=== PATIENT | female | born 1945 | race Caucasian/White ===

== ENCOUNTER → 2018-06-10 07:08 | Outpatient (CLI) | payer MEDICARE, OTHER, MEDICAID, SELFPAY ==
[2018-06-10 07:31] LABS: Blood Urea Nitrogen 24 mg/dL (7-18); Creatinine,Serum 1.07 mg/dL (0.55-1.02); Estimated Glomerular Filt Rate 50 ml/min (>60); GFR (African American) 60 ML/MIN (>60)
--- NOTE | 2018-06-10 09:31 | CT_ITS ---
CT chest w con HISTORY: Abnormal chest x-ray, weight loss ITS.REASON: WEIGHT LOSS ABNORMAL CXR ORDERING PHYSICIAN: Tanner Diallo MD PATIENT AGE: 73 years COMPARISON: None TECHNIQUE: Axial images obtained following the administration of 75 mL of Isovue 370 . Sagittal, and coronal reformatted images are also generated and reviewed. All CT scans at the facility use one or more dose reduction, viz: automated exposure control, ma/kV adjustment per patient size (including targeted exams where dose is matched to indication, i.e. head), or iterative reconstruction technique. FINDINGS: There are a few small lymph nodes in the mediastinum and christa but no adenopathy. Coronary artery calcifications are present. The heart size is normal without evidence of pericardial effusion. There is a moderate sized hiatal hernia with most of the stomach within the chest cavity within the hernia. The hernia is situated to the right of midline. There is patchy groundglass density in the superior segment of the right lower lobe nonspecific. Atelectatic changes are present in the right lower lobe posteriorly and inferiorly. Atelectatic or fibrotic changes are present in the left lung base in the posterior aspect of the left upper lobe. No suspicious pulmonary nodules are evident. There is minimal atelectatic or fibrotic change in the right upper lobe. Upper abdominal images show a moderate size hiatal hernia. There is mild wedging of T7 and T8 and minimal wedging of T9. The wedging is greatest at T7 and may be old. No previous exams available for comparison IMPRESSION: 1. Moderate-sized hiatal hernia 2. Scattered areas of atelectasis or fibrosis as described above with patchy infiltrate in the superior segment of the right lower lobe.
--- NOTE | 2018-06-10 09:31 | CT_ITS ---
CT abdomen pelvis w con CLINICAL INDICATION: ITS.REASON: WEIGHT LOSS ABNORMAL CXR ORDERING PHYSICIAN: Tanner Diallo MD PATIENT AGE: 73 years COMPARISON: None TECHNIQUE: Axial images obtained with sagittal and coronal reformats. All CT scans at the facility use one or more dose reduction, viz: automated exposure control, ma/kV adjustment per patient size (including targeted exams where dose is matched to indication, i.e. head), or iterative reconstruction technique. PROCEDURE: Oral Contrast: None IV Contrast: 75 mL of Isovue-370 performed in conjunction with the chest CT. FINDINGS: Coronary artery calcifications are present. There is a moderate-sized hiatal hernia containing two thirds of the stomach. The liver, spleen, right adrenal gland and pancreas have an unremarkable appearance. Nodular density is present in the mid aspect of the left adrenal gland measuring 16 mm and is indeterminate. There are a few small portal lymph nodes present. Prior cholecystectomy without ductal dilatation. No renal or ureteral calculi. No hydronephrosis. There is mild amount of retained colonic feces. There is no evidence of appendicitis. There is mild long segment thickening of the proximal aspect of the ascending colon which could be due to colitis. This begins at the region of the ileocecal valve. No evidence of diverticulitis. There are diverticula within the sigmoid colon. There has been a prior hysterectomy. There is a small umbilical hernia containing fat. There is mild wedging of L1 age indeterminate. A cystic lesion involves the femoral head on the right measuring 14 mm and may be due to a subarticular cyst/geode. IMPRESSION: 1. Moderate-sized hiatal hernia. 2. 16 mm left adrenal nodule indeterminate. Consider 6 month follow-up without and with contrast with delayed images 3. Thickening of the proximal aspect of the ascending colon which could be due to colitis 4. Possible subarticular cyst/medial to the right femur head. 5. Small umbilical hernia containing fat
== END ==
PROVIDERS: Visit Provider Internal Medicine Adolescent Medicine
DX: R93.89 Abnormal findings on diagnostic imaging of other specified body structures (principal); R63.4 Abnormal weight loss
CPT/HCPCS: 36415; 71260; 74177; 82565; 84520; Q9967

== ENCOUNTER 2018-12-26 07:28 | Emergency (ER) | payer MEDICARE, OTHER, MEDICAID, SELFPAY ==
[2018-12-26 07:28] VITALS: BP 135/66; PULSE 70; RESP 18; TEMP 36.8; O2SAT 93; BMI 33.5
--- NOTE | 2018-12-26 07:41 | CT_ITS ---
CT cervical spine wo con Ordering Physician: Quinton Joe MD Patient Age: 73 years: Female HISTORY: ITS.REASON: Fallthis morning hit head laceration frontal skull. Neck pain. TECHNIQUE: Helical CT scanning cervical spine. Axial sagittal and coronal reconstructions performed on CT workstation. All CT scans at this facility used one or more dose reduction techniques , viz: automatic exposure control, ma/Kv adjustment per patient's size, (including targeted exam where dose matched to the indication; i.e. head); or iterative reconstruction technique COMPARISON :Previous CT C-spine August 2018 Nonspecific straightening the cervical spine is similar to the previous study from August. Most likely positional but can reflect muscle spasm related to recent injury or pain. No acute fracture or subluxation is evident. C1-C2 relationships appear normal... Intact C2-C3: Disc intact.. C3-C4: Degenerative disc space narrowing with endplate hypertrophic change and bilateral foraminal narrowing.Osteophytic spurring with disc prominence most notable central into the right C4-C5: Degenerative Disc space narrowing. Uncovertebral joint hypertrophy most evident at left. Moderate left-sided foraminal narrowing. C5-6: Degenerative disc narrowing with uncovertebral hypertrophy. Most prominent spur/disc feature is seen right paracentral indenting anterior right aspect of thecal sac immediately right foraminal encroachment . C6-C7: Mild Degenerative disc space narrowing. Posterior spurring yields Mild bilateral foraminal encroachment.. C7-T1: Mild degenerative disc disease. . mild degenerative facet changes bilaterally most notable at the upper left C-spine as well as lower C-spine bilateral.. However normal facet relationships. Spinous processes appear satisfactory. Prevertebral soft tissues appear stable & WNL . IMPRESSION:...... 1. No acute fracture nor subluxation cervical spine. No significant change since 2018 prior-CT C-spine Again Multiple level cervical spondylosis and degenerative changes C-spine as described above...
--- NOTE | 2018-12-26 07:41 | CT_ITS ---
CT head/brain wo con HISTORY: Fall this morning hitting head frontal region. 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 Brain and bone windows reviewed. All CT scans at the facility use one or more dose reduction, viz: automated exposure control, ma/kV adjustment per patient size (including targeted exams where dose is matched to indication, i.e. head), or iterative reconstruction technique. FINDINGS: No new acute intracranial findings. Again see the postsurgical changes frontal lobe most evident to the right extensive atrophy, encephalomalacia of the frontal lobe anterior to the frontal horns again seen, unchanged since August exam. The previous extensive craniotomy anteriorly frontal bone again noted. No acute hemorrhage.. No mass effect no midline shift. No new extra-axial collection Mild Diffuse cerebral atrophy seen elsewhere. There is also mild diffuse atrophy at cerebellum and posterior fossa region is stable. The bone windows again nicely demonstrate the extensive frontal craniotomy which overall is unchanged. Suggestion of small hematoma at the frontal bone just above the left orbit towards midline. The skull beneath this area intact & unchanged The mastoid air cells appears stable with no mastoid effusion. Mild sclerosis at tip of left mastoid reflect old changes here.. Middle ear clear. Orbits unremarkable stable IMPRESSION... No acute intracranial findings. ... extensive postsurgical changes anteriorly with prominent atrophy, & encephalomalacia bifrontal regions again noted-unchanged since previous studies Prominent frontal craniotomy defect again noted and appears stable. Unchanged. . small scalp hematoma is seen at the left supraorbital region towards midline.-With underlying skull and bone beneath area intact
[2018-12-26 07:52] VITALS: BP 121/56; PULSE 74; O2SAT 93
--- NOTE | 2018-12-26 08:34 | PC.NURSE ---
pt return from CT
--- NOTE | 2018-12-26 08:41 | [facility].EDFALL ---
ED Disposition Clinical Impression: Fall, Facial laceration, Head contusion Disposition: Home, Self-Care Condition on Discharge: Fair Additional Instructions: 1- HOB 60 degree. 2- cold compresses 3- and fall precautions. 4- head injury instructions. 5- wound recheck in 2 days by pcp. 6- to return if needed. Referrals: Provider,Referral, [Primary Care Provider] - - Critical Care Critical Care Time: No Attestation: On 12/26/18, the high probability of a clinically significant, sudden or life threatening deterioration of the following system(s) required my full and direct attention, intervention and personal management. The time I documented below is in addition to time spent performing reported procedures but includes the following listed in this critical care notation. Medical Decision Making - Mathieu Inquiry Pt receiving controlled substance: No Mathieu was queried for this patient: No Vital Signs: 12/26/18 07:28 12/26/18 07:52 12/26/18 08:42 Temperature 98.3 F Temperature Source Oral Pulse Rate [Right Radial] 70 74 77 Respiratory Rate 18 18 Blood Pressure [Right Arm] 135/66 121/56 L 132/78 Blood Pressure Mean [Right Arm] 89 77 96 Blood Pressure Source [Right Arm] Automatic Cuff Automatic Cuff Automatic Cuff Blood Pressure Position [Right Arm] Sitting Sitting Sitting 02 Sat by Pulse Oximetry 93 L 93 L 92 L Oxygen Delivery Method Room Air Room Air Room Air 12/26/18 09:00 Temperature Temperature Source Pulse Rate [Right Radial] 70 Respiratory Rate Blood Pressure [Right Arm] 130/65 Blood Pressure Mean [Right Arm] 86 Blood Pressure Source [Right Arm] Automatic Cuff Blood Pressure Position [Right Arm] Sitting 02 Sat by Pulse Oximetry 91 L Oxygen Delivery Method Room Air - CT Data CT Scan: Head, C-Spine Time Received: 10:[address] Reviewed: Yes: I have viewed the radiologist's interpretation Preliminary Findings: Abnormal Findings Narrative: CT Head: IMPRESSION... No acute intracranial findings. ... extensive postsurgical changes anteriorly with prominent atrophy, & encephalomalacia bifrontal regions again noted-unchanged since previous studies Prominent frontal craniotomy defect again noted and appears stable. Unchanged. . small scalp hematoma is seen at the left supraorbital region towards midline.-With underlying skull and bone beneath area intact CT of the cervical spine IMPRESSION:...... 1. No acute fracture nor subluxation cervical spine. No significant change since 2018 prior-CT C-spine Again Multiple level cervical spondylosis and degenerative changes C-spine as described above... Medical Decision Narrative: I discussed with the patient's her finding informing her that using stitches and a small laceration may increase the bleeding especially while she is on aspirin. I cleaned the wound and applied Steri-Strip with Mastisol. Ordered a CT scan of the head and the cervical spine. Patient's oxygen saturation was 98 she was a percent she was alert oriented x3 in no cardiopulmonary distress distress, only new finding is neck tenderness remaining major joints where intact with normal range of motion. Fall HPI - General Chief Complaint: Fall Stated Complaint: fall from wheelchair Time Seen by Provider: 12/26/18 08:00 Mode of Arrival: EMS Limitations: No Limitations Description of Symptoms (Recalled from ER Triage Doc. by RN): retirement reports pt fell at approx 0530 this morning. Pt reports she was sitting up in her wheelchair when she fell asleep, pt report she fell out of her wheelchair after falling asleep, reports hit her head on the floor. Approx 3 cm laceration on forehead, bleeding controled upon arrival, steri strips x2 in place on laceration upon arrival-placed per [facility] staff per pt report. Pt denies pain, denies LOC - History of Present Illness HPI Narrative: 73 years old white female group home resident with c
[2018-12-26 08:42] VITALS: BP 132/78; PULSE 77; RESP 18; O2SAT 92
--- NOTE | 2018-12-26 08:45 | ED_ITS ---
ED Disposition Clinical Impression: Fall, Facial laceration, Head contusion Disposition: Home, Self-Care Condition on Discharge: Fair Additional Instructions: 1- HOB 60 degree. 2- cold compresses 3- and fall precautions. 4- head injury instructions. 5- wound recheck in 2 days by pcp. 6- to return if needed. Referrals: Provider,Referral, [Primary Care Provider] - - Critical Care Critical Care Time: No Attestation: On 12/26/18, the high probability of a clinically significant, sudden or life threatening deterioration of the following system(s) required my full and direct attention, intervention and personal management. The time I documented below is in addition to time spent performing reported procedures but includes the following listed in this critical care notation. Medical Decision Making - Mathieu Inquiry Pt receiving controlled substance: No Mathieu was queried for this patient: No Vital Signs: 12/26/18 07:28 12/26/18 07:52 12/26/18 08:42 Temperature 98.3 F Temperature Source Oral Pulse Rate [Right Radial] 70 74 77 Respiratory Rate 18 18 Blood Pressure [Right Arm] 135/66 121/56 L 132/78 Blood Pressure Mean [Right Arm] 89 77 96 Blood Pressure Source [Right Arm] Automatic Cuff Automatic Cuff Automatic Cuff Blood Pressure Position [Right Arm] Sitting Sitting Sitting 02 Sat by Pulse Oximetry 93 L 93 L 92 L Oxygen Delivery Method Room Air Room Air Room Air 12/26/18 09:00 Temperature Temperature Source Pulse Rate [Right Radial] 70 Respiratory Rate Blood Pressure [Right Arm] 130/65 Blood Pressure Mean [Right Arm] 86 Blood Pressure Source [Right Arm] Automatic Cuff Blood Pressure Position [Right Arm] Sitting 02 Sat by Pulse Oximetry 91 L Oxygen Delivery Method Room Air - CT Data CT Scan: Head, C-Spine Time Received: 10:[address] Reviewed: Yes: I have viewed the radiologist's interpretation Preliminary Findings: Abnormal Findings Narrative: CT Head: IMPRESSION... No acute intracranial findings. ... extensive postsurgical changes anteriorly with prominent atrophy, & encephalomalacia bifrontal regions again noted-unchanged since previous studies Prominent frontal craniotomy defect again noted and appears stable. Unchanged. . small scalp hematoma is seen at the left supraorbital region towards midline.-With underlying skull and bone beneath area intact CT of the cervical spine IMPRESSION:...... 1. No acute fracture nor subluxation cervical spine. No significant change since 2018 prior-CT C-spine Again Multiple level cervical spondylosis and degenerative changes C-spine as described above... Medical Decision Narrative: I discussed with the patient's her finding informing her that using stitches and a small laceration may increase the bleeding especially while she is on aspirin. I cleaned the wound and applied Steri-Strip with Mastisol. Ordered a CT scan of the head and the cervical spine. Patient's oxygen saturation was 98 she was a percent she was alert oriented x3 in no cardiopulmonary distress distress, only new finding is neck tenderness remaining major joints where intact with normal range of motion. Fall HPI - General Chief Complaint: Fall Stated Complaint: fall from
--- NOTE | 2018-12-26 08:46 | PC.NURSE ---
closed wound with steri strips and masitol
[2018-12-26 09:00] VITALS: BP 130/65; PULSE 70; O2SAT 91
--- NOTE | 2018-12-26 10:33 | PC.NURSE ---
report called to Gillian Hines LPN at [facility] at this time
--- NOTE | 2018-12-26 10:37 | PC.NURSE ---
contacted pt son Niranjan at this time, stated he will be on his way to get her
[2018-12-26 10:49] VITALS: BP 127/59; PULSE 72; O2SAT 91
--- NOTE | 2018-12-26 10:54 | PC.NURSE ---
pt c/o neuropathy pain in yessi feet, states she did not have her medication this morning, notified ER MD, gave verbal order for one time dose of Neurontin 600 mg po
[2018-12-26 12:38] VITALS: BP 132/74; PULSE 68; RESP 18; TEMP 36.6; O2SAT 98
== END 2018-12-26 12:39 | disposition home or self-care (01) ==
PROVIDERS: Emergency Provider Emergency Medicine
DX: S01.81XA Laceration without foreign body of other part of head, initial encounter (principal); W05.0XXA Fall from non-moving wheelchair, initial encounter; Y92.129 Unspecified place in nursing home as the place of occurrence of the external cause; Z79.899 Other long term (current) drug therapy; Z88.5 Allergy status to narcotic agent; E11.9 Type 2 diabetes mellitus without complications
CPT/HCPCS: 12011; 70450; 72125; 99283

== ENCOUNTER → 2019-09-15 13:06 | Outpatient (CLI) | payer MEDICARE, OTHER, MEDICAID, SELFPAY ==
--- NOTE | 2019-09-15 13:15 | MM_ITS ---
PROCEDURE: MM DIG MAMM BI DX W/CAD Digital Breast Tomosynthesis Included CLINICAL INDICATION: PALPABLE AREA Palpable abnormality of the left breast. Palpable abnormality outer aspect left breast COMPARISON: US BREAST LT COMPLETE from 09/15/2019 TECHNIQUE: Standard images performed along with 3D tomosynthesis and spot compression views as well as left breast ultrasound FINDINGS: There is average fibroglandular tissue. Study is somewhat limited secondary and difficulty with positioning the patient and patient motion artifact. There are multiple benign-appearing nodules of the right breast. No malignant appearing mass or malignant-appearing microcalcification evident of the right breast. A marker is placed along the upper-outer left breast denoting the area of palpable concern. At this region there is an ill-defined asymmetric density measuring 10 x 10 mm which persist on focal spot compression views and better demonstrated on the 3D tomography images. In addition, there is an indeterminate cluster of microcalcification in the medial aspect of the left breast Left breast ultrasound: 4 mm cyst is present 1 o'clock. At 3 o'clock corresponding to the area of palpable abnormality there is a 1 x 9 mm area of complex echogenicity with peripheral increased echogenicity and central decreased echogenicity. The central area of decreased echogenicity measures 7 x 6 mm and is polyp than wide. This may correspond to the mammographic abnormality. There are 2 small cyst at 4 o'clock at 6 and 3 mm. There is a 5 mm cyst at 10 o'clock IMPRESSION: Abnormal mammogram on the left with a focal asymmetric density at 3 o'clock at 10 x 10 mm and a hypoechoic nodule noted at this same area. This is suspicious for neoplasm and ultrasound-guided mammotome biopsy is suggested. In addition, there are suspicious calcifications in the medial aspect of the left breast for which stereotactic biopsy is recommended. BI-RAD Category: 4 Suspicious Abnormality - Biopsy Considered FOLLOW-UP: BIO Biopsy Recommended (A letter has been sent to the patient regarding results of the study.) Dictated by: Jose Maria Elizondo MD 09/21/2019 09:56 Electronically signed by Jose Maria Elizondo MD in [facility] 09/21/2019 09:56
== END ==
PROVIDERS: PCP Internal Medicine Adolescent Medicine; Visit Provider Internal Medicine Adolescent Medicine
DX: N63.23 Unspecified lump in the left breast, lower outer quadrant (principal)
CPT/HCPCS: 76641; 77062; 77066; G0279

== ENCOUNTER → 2019-10-08 19:57 | Outpatient (CLI) | payer MEDICARE, OTHER, MEDICAID, SELFPAY ==
[2019-10-08 20:01] LABS: Microscopic, Urine URINE MICROSCOPIC (MICROSCOPIC)
[2019-10-08 20:16] LABS: Appearance,Urine CLEAR (Clear); Bilirubin,Urine Negative (Negative); Blood, Urine Negative (Negative); Color,Urine YELLOW (Yellow); Glucose,Urine (UA) Negative (Negative); Ketones,Urine Negative (Negative); Leukocyte Esterase,Urine Negative (Negative); Nitrate,Urine Negative (Negative); Protein,Urine Negative (Negative); Specific Gravity, Urine 1.015 (1.005-1.030); Urobilinogen,Urine 0.2 EU/dl (0.2)
[2019-10-08 20:22] LABS: Amorphous Sediment,Urine Trace /lpf; Hyaline Casts,Urine Occasional #/lpf (0)
== END ==
PROVIDERS: Visit Provider Internal Medicine Adolescent Medicine
DX: R50.9 Fever, unspecified (principal)
CPT/HCPCS: 81001

== ENCOUNTER 2019-10-14 08:25 | Outpatient (CLI) | payer MEDICARE, OTHER, MEDICAID, SELFPAY ==
[2019-10-14] VITALS (20 sets, daily range): BP systolic 111–133; BP diastolic 48–88; PULSE 63–84; RESP 18–20; TEMP 36.1–36.9; O2SAT 92–97; BMI 34.0
[2019-10-14 09:19] LABS: Hematocrit 24.7 % (37.0-47.0)
[2019-10-14 09:25] LABS: Hemoglobin 7.7 g/dL (12.2-16.2)
--- NOTE | 2019-10-14 12:08 | PC.NURSE ---
1108 - PT SITTING UP IN CHAIR. BLOOD STARTED AT THIS TIME. BLOOD INFUSING AT 100 ML/HR. VSS. PT TOLERATING WELL. 1138 - PT SITTING UP IN CHAIR EATING LUNCH. BLOOD INFUSING AT 150 ML/HR. IV PATENT. VSS. PT TOLERATING WELL. 1153 - PT ASSISTED TO BED. VSS. IV PATENT. 1208- PT RESTING IN BED. IV PATENT. BLOOD INFUSING AT 200 ML/HR. PT TOLERATING WELL.
--- NOTE | 2019-10-14 14:12 | PC.NURSE ---
1331 - BLOOD TRANSFUSION STARTED AT THIS TIME. PT SITTING UP IN CHAIR. IV PATENT. BLOOD INFUSING AT 100 ML/HR. PT TOLERATING WELL. VSS. 1401 - PT [place] [facility] [place]. PT VOIDED WITHOUT DIFFICULTY. PT ASSISTED BACK TO CHAIR. IV PATENT. BLOOD INFUSING AT 150ML/HR. PT TOLERATING WELL. VSS.
[2019-10-14 16:40] LABS: Hematocrit 32.4 % (37.0-47.0)
[2019-10-14 16:44] LABS: Hemoglobin 10.7 g/dL (12.2-16.2)
== END 2019-10-14 17:00 | disposition home or self-care (01) ==
LOC: INF 08:32
PROVIDERS: Visit Provider Nurse Practitioner Family
DX: D64.9 Anemia, unspecified (principal)
CPT/HCPCS: 36415; 36430; 85014; 85018; 86850; 96409; P9016

== ENCOUNTER 2019-12-28 20:29 | Emergency (ER) | payer MEDICARE, OTHER, MEDICAID, SELFPAY ==
[2019-12-28 20:37] VITALS: BP 129/65; PULSE 94; RESP 22; TEMP 36.8; O2SAT 92; BMI 33.2
[2019-12-28 20:37] LABS: POC Glucose,Bedside 143 (70-110)
[2019-12-28 20:42] VITALS: BMI 33.2
--- NOTE | 2019-12-28 20:43 | XR_ITS ---
PROCEDURE: XR CHEST PORTABLE CLINICAL HISTORY: Altered mental status COMPARISON: CXR1 CHEST-PORTABLE from 04/08/[address] chest w con from 06/10/2018 CXR2 XR chest AP from 08/11/2018 FINDINGS: Cardiomegaly and large hernia is again noted. Lung cage are clear. Soft tissues and bony structures are intact IMPRESSION: Large hiatal hernia, cardiomegaly, clear lung cage Dictated by: Bruce Duncan 12/29/2019 08:21 Electronically signed by Bruce Duncan in [facility] 12/29/2019 08:21
--- NOTE | 2019-12-28 20:43 | CT_ITS ---
PROCEDURE: CT HEAD/BRAIN WO CON CLINICAL INDICATION: Altered mental status COMPARISON: HEADWO CT head/brain wo con from 12/26/2018 TECHNIQUE: Axial images obtained. All CT scans at the facility use one or more dose reduction, viz: automated exposure control, ma/kV adjustment per patient size (including targeted exams where dose is matched to indication, i.e. head), or iterative reconstruction technique. FINDINGS: There are no significant interval changes. 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 There is some streak artifact from the operative sutures. The remainder of the brain parenchyma is unremarkable. There are no definite mass lesions or hemorrhage. The sinuses are unremarkable. Bilateral mastoid effusions are noted. IMPRESSION: Stable postoperative changes of the bifrontal cortices Dictated by: Bruce Duncan 12/29/2019 08:26 Electronically signed by Bruce Duncan in [facility] 12/29/2019 08:26
--- NOTE | 2019-12-28 20:43 | ECG_ITS ---
APPROVED REPORT Exam: Resting ECG HR:92 bpm ECG Measurements Heart Rate 92 AXES IA 190 P 32 QRSd 90 QRS 95 QT 398 T 78 QTc 492 <Conclusion> Sinus rhythm with premature atrial complexes with aberrant conduction Rightward axis Nonspecific ST abnormality Prolonged QT Abnormal ECG Electronically signed by : Tanner Diallo, 01/03/2020 12:07:00
[2019-12-28 20:48] LABS: Basophils # 0.1 K/mm3 (0-0.2); Basophils % 0.6 % (0.1-2.0); Eosinophils # 0.2 K/mm3 (0.0-0.4); Eosinophils % 2.8 % (0.1-12.0); Hematocrit 27.9 % (37.0-47.0); Hemoglobin 9.4 g/dL (12.2-16.2); Lymphocytes # 1.8 K/mm3 (0.7-4.5); Lymphocytes % 22.2 % (10-50); Mean Corpuscular HGB Conc 33.7 g/dL (31.8-35.4); Mean Corpuscular Hemoglobin 37.5 pg (27.0-31.2); Mean Corpuscular Volume 111.3 fl (81-99); Monocytes # 0.6 K/mm3 (0.1-1.0); Monocytes % 6.6 % (1.7-9.3); Neutrophils # 5.6 K/mm3 (1.8-7.8); Neutrophils % 67.7 % (37.0-80.0); Platelet Count 441 K/mm3 (142-424); Red Blood Count 2.51 M/mm3 (4.20-5.40); White Blood Count 8.3 K/mm3 (4.8-10.8)
[2019-12-28 20:55] LABS: Red Cell Distribution Width 25.2 % (11.5-17.5)
[2019-12-28 20:59] LABS: Chloride 95 mmol/L (98-107); Sodium 137 mmol/L (136-145)
[2019-12-28 21:00] LABS: Potassium 3.7 mmoL/L (3.5-5.1)
[2019-12-28 21:02] LABS: Blood Urea Nitrogen 29 mg/dl (7-17); Creatinine Clearance Estimated 58 mL/min (50-200); Estimated Glomerular Filt Rate 54 ml/min (>60); GFR (African American) 65 ML/MIN (>60)
[2019-12-28 21:03] LABS: Anion Gap 12.7 mEq/L (5-15); Calcium 9.5 mg/dl (8.4-10.2); Carbon Dioxide 33 mmol/L (22.0-30.0); Glucose 140 mg/dl (74-100)
[2019-12-28 21:22] LABS: Troponin I < 0.01 ng/ml (0.00-0.034)
--- NOTE | 2019-12-28 21:22 | HMH.EDNEU ---
ED Disposition Clinical Impression: Transient cerebral ischemia Qualifiers: Transient cerebral ischemia type: unspecified Qualified Code(s): G45.9 - Transient cerebral ischemic attack, unspecified Anemia Qualifiers: Anemia type: unspecified type Qualified Code(s): D64.9 - Anemia, unspecified Disposition: Home, Self-Care Condition on Discharge: Good Instructions: DI for Altered Mental Status Additional Instructions: use o2 tonight and resume orders Referrals: Tanner Diallo MD [Primary Care Provider] - - Critical Care Critical Care Time: No Attestation: On 12/28/19, the high probability of a clinically significant, sudden or life threatening deterioration of the following system(s) required my full and direct attention, intervention and personal management. The time I documented below is in addition to time spent performing reported procedures but includes the following listed in this critical care notation. Medical Decision Making - Medical Records Medical records reviewed: Yes: I reviewed the patient's medical records. - Mathieu Inquiry Pt receiving controlled substance: No Vital Signs: 12/28/19 20:37 12/28/19 21:51 12/28/19 22:27 Temperature 98.2 F Temperature Source Rectal Pulse Rate [Right Brachial] 94 H 85 73 Respiratory Rate 22 18 18 Blood Pressure [Right Arm] 129/65 107/48 L 123/56 L Blood Pressure Mean [Right Arm] 86 67 78 Blood Pressure Source [Right Arm] Automatic Cuff Blood Pressure Position [Right Arm] Sitting 02 Sat by Pulse Oximetry 92 L 97 100 Oxygen Delivery Method Room Air Nasal Cannula Nasal Cannula Oxygen Flow Rate (LPM) 2 2 - Lab Data Lab results reviewed: Yes: I reviewed the patient's lab results. Lab Results 12/28/19 20:30: WBC 8.3, RBC 2.51 L, Hgb 9.4 L, Hct 27.9 L, MCV 111.3 H, MCH 37.5 H, MCHC 33.7, RDW 25.2 H*, Plt Count 441 H, MPV 10.0, Neut % (Auto) 67.7, Lymph % (Auto) 22.2, Bryan % (Auto) 6.6, Eos % (Auto) 2.8, Baso % (Auto) 0.6, Neut # (Auto) 5.6, Lymph # (Auto) 1.8, Bryan # (Auto) 0.6, Eos # (Auto) 0.2, Baso # (Auto) 0.1 12/28/19 20:30: Sodium 137, Potassium 3.7, Chloride 95 L, Carbon Dioxide 33 H, Anion Gap 12.7, BUN 29 H, Creatinine 1.00, Estimated Creat Clear 58, Estimated GFR 54 L, Est GFR ( Amer) 65, Glucose 140 H, Calcium 9.5, Troponin I < 0.01 12/28/19 20:34: POC Glucose 143 H 12/28/19 22:04: Urine Color Yellow, Urine Appearance Clear, Urine pH 6.0, Ur Specific [place] 1.020, Urine Protein Negative, Urine Glucose (UA) Negative, Urine Ketones Negative, Urine Blood Negative, Urine Nitrate Negative, Urine Bilirubin Negative, Urine Urobilinogen 0.2, Ur Leukocyte Esterase Negative, Urine WBC Occasional, Ur Squamous Epith Cells 3-5, Urine Bacteria Trace Result diagrams: 12/28/19 20:30 12/28/19 20:30 Orders (Tests/Meds): ORDERS Category Date Time Status CT head/brain wo con Stat Cat Scan 12/28/19 20:43 Taken XR chest portable Stat Exams 12/28/19 20:43 Taken Troponin I Q3H Lab 12/28/19 23:45 Ordered Troponin I Q3H Lab 12/29/19 02:45 Ordered - Radiology Data #1 Image(s): Chest Image Reviewed: Yes I reviewed the patient's radiology image Preliminary Findings: Normal/NAD - CT Data CT Scan: Head Time Received: 22:[address] Reviewed: Yes: I have viewed the radiologist's interpretation Preliminary Findings: Abnormal - ECG Data Tracing #1 Normal Sinus Rhythm: Yes Ischemic changes: non-specific ST-T wave changes - Reevaluation(s) Time: 22:51 Reevaluation #1: nl Neuro HPI - General Chief Complaint: Neuro Symptoms/Deficit Stated Complaint: AMS Time Seen by Provider: 12/28/19 20:45 Mode of Arrival: EMS Source of Information: Patient, EMS, Medical Record Limitations: No Limitations Description of Symptoms (Recalled from ER Triage Doc. by RN): pt presents after having a tia-like episode around 1915; nh reports a 15-20 min period of dysarthria and flaccidness to right side. presents resolved at this point. nih 0. emv
[2019-12-28 21:51] VITALS: BP 107/48; PULSE 85; RESP 18; O2SAT 97
[2019-12-28 22:06] LABS: Microscopic, Urine URINE MICROSCOPIC (MICROSCOPIC)
[2019-12-28 22:07] LABS: Appearance,Urine CLEAR (Clear); Bilirubin,Urine Negative (Negative); Blood, Urine Negative (Negative); Color,Urine YELLOW (Yellow); Glucose,Urine (UA) Negative (Negative); Ketones,Urine Negative (Negative); Leukocyte Esterase,Urine Negative (Negative); Nitrate,Urine Negative (Negative); Protein,Urine Negative (Negative); Urobilinogen,Urine 0.2 EU/dl (0.2)
[2019-12-28 22:25] LABS: Bacteria,Urine Trace /lpf; WBC,Urine Occasional #/hpf (0-3)
[2019-12-28 22:27] VITALS: BP 123/56; PULSE 73; RESP 18; O2SAT 100
[2019-12-28 23:06] VITALS: BP 111/51; PULSE 75; RESP 16; TEMP 36.7; O2SAT 93
== END 2019-12-28 23:09 | disposition home or self-care (01) ==
PROVIDERS: Emergency Provider Emergency Medicine; PCP Internal Medicine Adolescent Medicine
DX: G45.8 Other transient cerebral ischemic attacks and related syndromes (principal); G40.909 Epilepsy, unspecified, not intractable, without status epilepticus; Z88.5 Allergy status to narcotic agent; E11.9 Type 2 diabetes mellitus without complications; E78.5 Hyperlipidemia, unspecified; I10 Essential (primary) hypertension; Z79.899 Other long term (current) drug therapy
CPT/HCPCS: 70450; 71045; 80048; 81001; 82962; 84484; 85025; 93005; 99284

== ENCOUNTER → 2020-03-29 09:57 | Outpatient (CLI) | payer MEDICARE, OTHER, MEDICAID, SELFPAY ==
--- NOTE | 2020-03-29 10:02 | US_ITS ---
PROCEDURE: US MAMMOTOME BX LT Stereotactic breast biopsy. 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 There were suspicious calcifications in the mid aspect of the left breast inferiorly and a suspicious 1 cm nodule in the left breast at 3 o'clock on previous ultrasound. The ultrasound-guided biopsy was performed 1st. Following obtaining informed consent and time-out procedure using sonographic guidance under aseptic conditions and local anesthesia with 1 percent buffered lidocaine and deeper anesthesia with lidocaine mixed with epinephrine skin cindy was performed and mammotome needle inserted. Multiple mammotome biopsies were obtained. This micro nydia clip was then placed. The patient tolerated the procedure well without evidence of immediate complication Following this, patient was then aborted to the a tactic room and placed in the stereotactic unit for localization of the breast calcifications. Once calcifications were localized, under aseptic conditions and local anesthesia with 1 percent buffered lidocaine and deeper anesthesia with lidocaine mixed with epinephrine a skin cindy was performed and a mammotome needle was inserted. Multiple mammotome biopsies were obtained. Specimen radiograph did demonstrate calcifications of interest. Post biopsy mammogram showed post biopsy changes in the lower inner aspect of the left breast with removal of the calcifications of interest. There are also post biopsy changes in the the left breast at 3 o'clock from the ultrasound-guided biopsy. The patient tolerated both procedures well without evidence of immediate complication and left radiology suite in stable condition. 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 No invasive carcinoma identified. 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 Recommend surgical and oncological consult Dictated by: Jose Maria Elizondo MD 04/03/2020 10:30 Jose Maria Elizondo MD in [facility] 04/03/2020 10:30
== END ==
PROVIDERS: PCP Internal Medicine Adolescent Medicine; Visit Provider Internal Medicine Adolescent Medicine
DX: R92.8 Other abnormal and inconclusive findings on diagnostic imaging of breast (principal)
CPT/HCPCS: 19081; 76098; 76942; 77065; 88305; 88360; C2618

== ENCOUNTER → 2020-08-30 11:11 | Outpatient (CLI) | payer MEDICARE, OTHER, MEDICAID, SELFPAY ==
[2020-08-30 15:41] LABS: Basophils % 0.9 % (0.1-2.0); Eosinophils # 0.1 K/mm3 (0.0-0.4); Eosinophils % 3.1 % (0.1-12.0); Hematocrit 27.3 % (37.0-47.0); Hemoglobin 8.5 g/dL (12.2-16.2); Lymphocytes # 1.9 K/mm3 (0.7-4.5); Lymphocytes % 43.4 % (10-50); Mean Corpuscular HGB Conc 31.1 g/dL (31.8-35.4); Mean Corpuscular Hemoglobin 36.8 pg (27.0-31.2); Mean Corpuscular Volume 118.6 fl (81-99); Mean Platelet Volume 11.6 fl (7.4-10.4); Monocytes # 0.3 K/mm3 (0.1-1.0); Monocytes % 7.3 % (1.7-9.3); Neutrophils % 45.3 % (37.0-80.0); Platelet Count 361 K/mm3 (142-424); Red Cell Distribution Width 23.2 % (11.5-17.5); White Blood Count 4.3 K/mm3 (4.8-10.8)
== END ==
PROVIDERS: Visit Provider Internal Medicine Adolescent Medicine
DX: I10 Essential (primary) hypertension (principal); E11.9 Type 2 diabetes mellitus without complications; E78.5 Hyperlipidemia, unspecified
CPT/HCPCS: 36415; 85025

== ENCOUNTER → 2020-10-10 09:46 | Outpatient (CLI) | payer MEDICARE, MEDICAID, OTHER, SELFPAY ==
[2020-10-10] VITALS (20 sets, daily range): BP systolic 94–122; BP diastolic 40–58; PULSE 61–81; RESP 18; TEMP 36.1–36.6; O2SAT 97–99; BMI 30.4
[2020-10-10 11:05] LABS: Hematocrit 23.1 % (37.0-47.0); Hemoglobin 7.3 g/dL (12.2-16.2)
--- NOTE | 2020-10-10 16:52 | PC.NURSE ---
pt assisted to br, able to void without difficulty. pt then assisted to wc and transported to 2nd floor to finish the rest of her blood transfusion. report handed off to elvi desai rn.
[2020-10-10 18:33] LABS: Hematocrit 29.4 % (37.0-47.0)
[2020-10-10 18:50] LABS: Hemoglobin 9.4 g/dL (12.2-16.2)
--- NOTE | 2020-10-10 19:21 | PC.NURSE ---
PT LEFT FLOOR WITH [facility] AT [id number]
== END ==
PROVIDERS: PCP Internal Medicine Adolescent Medicine; Visit Provider Internal Medicine Adolescent Medicine
DX: D64.9 Anemia, unspecified (principal)
CPT/HCPCS: 36430; 85014; 85018; 86850; P9016

== ENCOUNTER → 2021-01-02 08:42 | Outpatient (CLI) | payer MEDICARE, MEDICAID, OTHER, SELFPAY ==
[2021-01-02 13:50] LABS: Chloride 105 mmol/L (98-107); Sodium 141 mmol/L (136-145)
[2021-01-02 13:51] LABS: Potassium 3.9 mmoL/L (3.5-5.1)
[2021-01-02 13:53] LABS: Alanine Aminotransferase 26 U/L (12-78); Albumin Level 3.5 g/dl (3.5-5.0); Alkaline Phosphatase 194 U/L (38-126); Anion Gap 14.9 mEq/L (5-15); Aspartate Amino Transferase 27 U/L (14-36); Bilirubin,Total 0.5 mg/dl (0.2-1.3); Blood Urea Nitrogen 38 mg/dl (7-17); Calcium 10.6 mg/dl (8.4-10.2); Carbon Dioxide 25 mmol/L (22.0-30.0); Estimated Glomerular Filt Rate 48 ml/min (>60); GFR (African American) 58 ML/MIN (>60); Globulin 3.4 g/dL (1.3-3.2); Glucose 88 mg/dl (74-100); Total Protein,Serum 6.9 g/dl (6.3-8.2)
[2021-01-02 13:57] LABS: Basophils % 0.5 % (0.1-2.0); Eosinophils # 0.1 K/mm3 (0.0-0.4); Hematocrit 26.8 % (37.0-47.0); Hemoglobin 8.8 g/dL (12.2-16.2); Lymphocytes # 1.6 K/mm3 (0.7-4.5); Mean Corpuscular Hemoglobin 32.5 pg (27.0-31.2); Mean Corpuscular Volume 98.7 fl (81-99); Mean Platelet Volume 11.7 fl (7.4-10.4); Monocytes # 0.3 K/mm3 (0.1-1.0); Neutrophils # 0.8 K/mm3 (1.8-7.8); Neutrophils % 29.5 % (37.0-80.0); Platelet Count 189 K/mm3 (142-424); Red Blood Count 2.72 M/mm3 (4.20-5.40); Red Cell Distribution Width 21.9 % (11.5-17.5); White Blood Count 2.8 K/mm3 (4.8-10.8)
[2021-01-02 13:59] LABS: MANUAL DIFFERENTIAL MANUAL DIFFERENTIAL (MANUAL DIFF)
[2021-01-02 15:13] LABS: Eosinophils % 1 % (0-3); Lymphocytes % 64 % (10-50); Monocytes % 12 % (2-9); Neutrophils % 13 % (42-76); Promyelocytes % 1 %; Total Cells Counted 100
[2021-01-02 15:14] LABS: Anisocytosis 1+; Platelet Estimate Normal
[2021-01-02 15:15] LABS: Burr Cells 1+; Hypochromasia 2+; Macrocytosis 1+; Tear Drop Cells 1+
[2021-01-02 15:25] LABS: Phenytoin (Dilantin) 7.1 ug/ml (10-20)
[2021-01-07 18:39] LABS: Levetiracetam (Keppra) 26.2 ug/mL (10.0-40.0)
== END ==
PROVIDERS: Visit Provider Nurse Practitioner Family
DX: D64.9 Anemia, unspecified (principal); E87.6 Hypokalemia; N28.9 Disorder of kidney and ureter, unspecified; Z51.81 Encounter for therapeutic drug level monitoring; Z79.899 Other long term (current) drug therapy
CPT/HCPCS: 36415; 80053; 80177; 80185; 85007; 85025

== ENCOUNTER → 2021-01-11 07:01 | Outpatient (CLI) | payer MEDICARE, MEDICAID, OTHER, SELFPAY ==
[2021-01-15 18:32] LABS: Levetiracetam (Keppra) 26.1 ug/mL (10.0-40.0)
== END ==
PROVIDERS: Visit Provider Internal Medicine Adolescent Medicine
DX: Z51.81 Encounter for therapeutic drug level monitoring (principal); R56.9 Unspecified convulsions
CPT/HCPCS: 36415; 80177

== ENCOUNTER → 2021-01-18 07:59 | Outpatient (CLI) | payer MEDICARE, MEDICAID, OTHER, SELFPAY ==
[2021-01-20 20:13] LABS: Levetiracetam (Keppra) 24.9 ug/mL (10.0-40.0)
== END ==
PROVIDERS: Visit Provider Nurse Practitioner Family
DX: G40.909 Epilepsy, unspecified, not intractable, without status epilepticus (principal); Z51.81 Encounter for therapeutic drug level monitoring
CPT/HCPCS: 36415; 80177

== ENCOUNTER → 2021-02-27 08:18 | Outpatient (CLI) | payer MEDICARE, MEDICAID, OTHER, SELFPAY ==
[2021-02-27 10:41] LABS: Basophils % 0.9 % (0.1-2.0); Eosinophils % 1.7 % (0.1-12.0); Hematocrit 27.2 % (37.0-47.0); Hemoglobin 8.3 g/dL (12.2-16.2); Lymphocytes # 1.6 K/mm3 (0.7-4.5); Mean Corpuscular HGB Conc 30.4 g/dL (31.8-35.4); Mean Corpuscular Hemoglobin 32.2 pg (27.0-31.2); Mean Corpuscular Volume 105.7 fl (81-99); Mean Platelet Volume 11.1 fl (7.4-10.4); Monocytes # 0.1 K/mm3 (0.1-1.0); Monocytes % 5.8 % (1.7-9.3); Neutrophils # 0.6 K/mm3 (1.8-7.8); Neutrophils % 23.7 % (37.0-80.0); Platelet Count 189 K/mm3 (142-424); Red Blood Count 2.57 M/mm3 (4.20-5.40); Red Cell Distribution Width 21.8 % (11.5-17.5); White Blood Count 2.4 K/mm3 (4.8-10.8)
[2021-02-27 10:44] LABS: MANUAL DIFFERENTIAL MANUAL DIFFERENTIAL (MANUAL DIFF)
[2021-02-27 11:15] LABS: Hemoglobin A1C 4.8 % (4.0-6.0)
[2021-02-27 11:16] LABS: Anisocytosis 2+; Hypochromasia 2+; Lymphocytes % 71 % (10-50); Macrocytosis 3+; Monocytes % 7 % (2-9); Neutrophils % 22 % (42-76); Nucleated Red Blood Cells 1; Platelet Estimate Normal; Total Cells Counted 100
[2021-02-27 11:24] LABS: Alanine Aminotransferase 28 U/L (12-78); Albumin Level 3.7 g/dl (3.5-5.0); Alkaline Phosphatase 129 U/L (38-126); Anion Gap 13.9 mEq/L (5-15); Aspartate Amino Transferase 32 U/L (14-36); Bilirubin,Total 0.5 mg/dl (0.2-1.3); Blood Urea Nitrogen 37 mg/dl (7-17); Calcium 9.8 mg/dl (8.4-10.2); Carbon Dioxide 26 mmol/L (22.0-30.0); Chloride 102 mmol/L (98-107); Estimated Glomerular Filt Rate 40 ml/min (>60); GFR (African American) 48 ML/MIN (>60); Globulin 3.7 g/dL (1.3-3.2); Glucose 88 mg/dl (74-100); Potassium 4.9 mmoL/L (3.5-5.1); Sodium 137 mmol/L (136-145); Total Protein,Serum 7.4 g/dl (6.3-8.2)
[2021-03-02 19:30] LABS: Levetiracetam (Keppra) 44.7 ug/mL (10.0-40.0)
== END ==
PROVIDERS: Visit Provider Internal Medicine Adolescent Medicine
DX: I10 Essential (primary) hypertension (principal); E11.40 Type 2 diabetes mellitus with diabetic neuropathy, unspecified; E78.5 Hyperlipidemia, unspecified; R56.9 Unspecified convulsions; Z51.81 Encounter for therapeutic drug level monitoring; Z79.84 Long term (current) use of oral hypoglycemic drugs
CPT/HCPCS: 36415; 80053; 80177; 83036; 84550; 85007; 85025

== ENCOUNTER → 2021-04-10 07:42 | Outpatient (CLI) | payer MEDICARE, MEDICAID, OTHER, SELFPAY ==
[2021-04-10 13:54] LABS: Basophils % 1.1 % (0.1-2.0); Eosinophils % 1.3 % (0.1-12.0); Hematocrit 28.7 % (37.0-47.0); Hemoglobin 8.5 g/dL (12.2-16.2); Lymphocytes # 1.5 K/mm3 (0.7-4.5); Lymphocytes % 64.7 % (10-50); Mean Corpuscular HGB Conc 29.6 g/dL (31.8-35.4); Mean Corpuscular Volume 104.8 fl (81-99); Mean Platelet Volume 12.8 fl (7.4-10.4); Monocytes # 0.3 K/mm3 (0.1-1.0); Monocytes % 12.7 % (1.7-9.3); Neutrophils # 0.5 K/mm3 (1.8-7.8); Neutrophils % 20.3 % (37.0-80.0); Platelet Count 215 K/mm3 (142-424); Red Blood Count 2.74 M/mm3 (4.20-5.40); Red Cell Distribution Width 20.8 % (11.5-17.5); White Blood Count 2.3 K/mm3 (4.8-10.8)
[2021-04-10 14:02] LABS: MANUAL DIFFERENTIAL MANUAL DIFFERENTIAL (MANUAL DIFF)
[2021-04-10 14:26] LABS: Anisocytosis 2+; Hypochromasia 3+; Lymphocytes % 64 % (10-50); Macrocytosis 3+; Monocytes % 8 % (2-9); Neutrophils % 26 % (42-76); Platelet Estimate Normal; Total Cells Counted 100
== END ==
PROVIDERS: Visit Provider Internal Medicine Adolescent Medicine
DX: D64.9 Anemia, unspecified (principal)
CPT/HCPCS: 36415; 85007; 85025

== ENCOUNTER → 2021-05-23 09:43 | Outpatient (CLI) | payer MEDICARE, OTHER, MEDICAID, SELFPAY ==
--- NOTE | 2021-05-23 09:48 | CT_ITS ---
PROCEDURE: CT HEAD/BRAIN WO/W CON CLINICAL INDICATION: AMA-AMS COMPARISON: CT CT HEAD/BRAIN WO CON from 12/28/2019 TECHNIQUE: IV Contrast: 100ML Isovue 370 Axial images obtained. All CT scans at the facility use one or more dose reduction, viz: automated exposure control, ma/kV adjustment per patient size (including targeted exams where dose is matched to indication, i.e. head), or iterative reconstruction technique. FINDINGS: There has been a prior craniotomy extending from the right frontal parietal region to the left frontal bone. Decker holes are present within the central and inferior aspect of this craniotomy. Extensive encephalomalacia changes are present in both frontal lobes somewhat more prominent on the right compared to the left side similar to 12/28/2019exam exam. No enhancing lesions are evident. No midline shift or mass effect is apparent. There is generalized atrophy. IMPRESSION: No change with no acute finding. Prior bilateral frontal craniotomy with extensive encephalomalacia change. Dictated by: Jose Maria Elizondo MD 05/24/2021 12:13 Jose Maria Elizondo MD in [facility] 05/24/2021 12:13
--- NOTE | 2021-05-26 22:06 | PC.NURSE ---
medical records sent to [facility]
== END ==
PROVIDERS: PCP Internal Medicine Adolescent Medicine; Visit Provider Nurse Practitioner Family
DX: R41.82 Altered mental status, unspecified (principal)
CPT/HCPCS: 70470; Q9967

== ENCOUNTER → 2021-07-16 06:28 | Outpatient (CLI) | payer MEDICARE, OTHER, MEDICAID, SELFPAY ==
[2021-07-16 08:01] LABS: Eosinophils # 0.2 K/mm3 (0.0-0.4); Lymphocytes # 1.4 K/mm3 (0.7-4.5); Mean Corpuscular HGB Conc 32.2 g/dL (31.8-35.4); Mean Corpuscular Hemoglobin 32.1 pg (27.0-31.2); Mean Corpuscular Volume 99.7 fl (81-99); Mean Platelet Volume 11.2 fl (7.4-10.4); Monocytes # 0.3 K/mm3 (0.1-1.0); Monocytes % 8.5 % (1.7-9.3); Neutrophils # 1.4 K/mm3 (1.8-7.8); Neutrophils % 43.6 % (37.0-80.0); Platelet Count 298 K/mm3 (142-424); Red Blood Count 2.08 M/mm3 (4.20-5.40); Red Cell Distribution Width 22.3 % (11.5-17.5); White Blood Count 3.3 K/mm3 (4.8-10.8)
[2021-07-16 08:17] LABS: Hematocrit 20.8 % (37.0-47.0); Hemoglobin 6.7 g/dL (12.2-16.2)
[2021-07-16 09:16] LABS: Alanine Aminotransferase 24 U/L (12-78); Albumin Level 3.3 g/dl (3.5-5.0); Alkaline Phosphatase 122 U/L (38-126); Anion Gap 11.9 mEq/L (5-15); Aspartate Amino Transferase 28 U/L (14-36); Bilirubin,Total 0.5 mg/dl (0.2-1.3); Blood Urea Nitrogen 34 mg/dl (7-17); Calcium 9.9 mg/dl (8.4-10.2); Carbon Dioxide 28 mmol/L (22.0-30.0); Chloride 105 mmol/L (98-107); Estimated Glomerular Filt Rate 40 ml/min (>60); GFR (African American) 48 ML/MIN (>60); Globulin 3.2 g/dL (1.3-3.2); Glucose 92 mg/dl (74-100); Potassium 4.9 mmoL/L (3.5-5.1); Sodium 140 mmol/L (136-145); Total Protein,Serum 6.5 g/dl (6.3-8.2)
[2021-08-24 11:30] LABS: Free Valproic Acid (Depakote) 2.5
== END ==
PROVIDERS: Visit Provider Nurse Practitioner Family
DX: D64.9 Anemia, unspecified (principal)
CPT/HCPCS: 36415; 80053; 80165; 85025

== ENCOUNTER 2021-07-17 08:20 | Outpatient (CLI) | payer MEDICARE, OTHER, MEDICAID, SELFPAY ==
[2021-07-17] VITALS (21 sets, daily range): BP systolic 104–160; BP diastolic 42–98; PULSE 64–83; RESP 17–20; TEMP 36.1–37.1; O2SAT 93–96; BMI 28.3
--- NOTE | 2021-07-17 09:20 | PC.NURSE ---
0920- RN notified by jay burroughs in blood bank that they have to wait on software development coordinator to bring a positive blood, asked if we wanted a different type of blood or wait on delivery; called to ask he ordered to wait for blood to come.
--- NOTE | 2021-07-17 14:40 | PC.NURSE ---
1440-started first unit of blood transfusion prbcs; lungs clear to auscultation
--- NOTE | 2021-07-17 14:45 | PC.NURSE ---
1445-lungs clear to auscultation no complaints at this time
--- NOTE | 2021-07-17 14:50 | PC.NURSE ---
1450-lungs clear to auscultation no complaints at this time
--- NOTE | 2021-07-17 14:55 | PC.NURSE ---
1455-lungs clear to auscultation no complaints at this time;pt resting with eyes closed
--- NOTE | 2021-07-17 15:10 | PC.NURSE ---
1510-lungs clear to auscultation no complaints at this time
--- NOTE | 2021-07-17 15:25 | PC.NURSE ---
1525-lungs clear to auscultation no complaints at this time
--- NOTE | 2021-07-17 15:40 | PC.NURSE ---
1540-lungs clear to auscultation no complaints at this time
--- NOTE | 2021-07-17 17:15 | PC.NURSE ---
1715-gave bedside report to sven jaimes rn when pt transferred to room 205 for remainder of the blood transfusion
--- NOTE | 2021-07-17 19:05 | PC.NURSE ---
Report received from Ivette Pham RN
[2021-07-17 21:47] LABS: Hematocrit 30.5 % (37.0-47.0); Hemoglobin 9.6 g/dL (12.2-16.2)
== END 2021-07-17 22:22 | disposition home or self-care (01) ==
LOC: INF 08:22
PROVIDERS: PCP Internal Medicine Adolescent Medicine; Visit Provider Internal Medicine Adolescent Medicine
DX: D64.9 Anemia, unspecified (principal)
CPT/HCPCS: 36415; 36430; 85014; 85018; 86850; P9016